=== PATIENT | female | born 1990 | race Hispanic/Latino ===

== ENCOUNTER 2020-03-10 11:16 | Inpatient (IN) | payer BC, MEDICAID ==
[~2020-03-10] VITALS: Ht 157.5 cm; Wt 101.6 kg
[~2020-03-10 11:16] MED LIST: IBUP-2070 PO
[2020-03-10 11:31] VITALS: BP 110/69
[2020-03-10 11:49] LABS: APPEARANCE,URINE Clear (CLEAR); BILIRUBIN,URINE Negative (NEGATIVE); COLOR,URINE Yellow (YELLOW); GLUCOSE, URINE (UA) Negative (NEGATIVE); KETONES,URINE Negative (NEGATIVE); LEUKOCYTE ESTERASE ,URINE Moderate (NEGATIVE); NITRATE,URINE Negative (NEGATIVE); OCCULT BLOOD,URINE Negative (NEGATIVE); PH,URINE 6.5 (5.0-8.0); PROTEIN,URINE Negative (NEGATIVE)
[2020-03-10 11:59] LABS: BACTERIA,URINE Moderate /HPF (None Seen); MUCUS,URINE Moderate LPF (None Seen); RBC,URINE None Seen /HPF (0-1)
[2020-03-10] MEDS ORDERED: AMPICILLIN 1GM+NS 50ML 50 ML IV SCH (12:15)
[2020-03-10] MEDS ORDERED: LACTATED RINGERS 500 ML 500 ML IV PRN (12:15)
[2020-03-10] MEDS ORDERED: NALOXONE HCL 0.4 MG/1 ML ML IV PRN (12:15)
[2020-03-10] MEDS ORDERED: AMPICILLIN 2GM+NS 100ML 100 ML IV SCH (12:15)
[2020-03-10] MEDS ORDERED: LACTATED RINGERS 1000ML 1,000 ML IV PRN (12:15)
[2020-03-10] MEDS ORDERED: ROPIVACAINE 0.2% 100ML VIAL 100 ML EP PRN (12:15)
[2020-03-10] MEDS ORDERED: EPHEDRINE SULFATE 50 MG/ML AMPULE IVP PRN (12:15)
[2020-03-10] MEDS ORDERED: OXYTOCIN-LR 20 UNITS/1000 ML 1,000 ML IV SCH ×2 (12:15)
[2020-03-10 12:23] LABS: HEMATOCRIT 34.7 % (36-48); MEAN CORPUSCULAR HEMOGLOBIN 25.6 pg (27.0-33.0); MEAN CORPUSCULAR HGB CONC 32.6 g/dL (32.0-36.0); MEAN CORPUSCULAR VOLUME 78.7 fL (79-99); RED BLOOD CELL COUNT(AUTO) 4.41 MIL/uL (4.00-5.50); WHITE BLOOD COUNT (AUTO) 10.5 K/uL (4.8-10.8)
[2020-03-10] MEDS: BUTORPHANOL TARTRATE 2 MG/ML IVP PRN ×2 (13:56→16:55)
[2020-03-10 14:57] LABS: AMPHET/METH SCREEN,URINE NEGATIVE (NEGATIVE); BARBITURATE SCREEN, URINE NEGATIVE (NEGATIVE); BENZODIAZEPINES SCREEN,URINE NEGATIVE (NEGATIVE); CANNABINOID SCREEN,URINE NEGATIVE (NEGATIVE); COCAINE SCREEN,URINE NEGATIVE (NEGATIVE); OPIATE SCREEN,URINE NEGATIVE (NEGATIVE); PHENCYCLIDINE SCREEN,URINE NEGATIVE (NEGATIVE)
[2020-03-10] MEDS ORDERED: LIDOCAINE HCL 1% 20 ML VIAL ONE (15:56)
[2020-03-10] MEDS ORDERED: METHYLERGONOVINE MALEATE 0.2 MG/1 ML ML ONE (15:56)
[2020-03-10] MEDS ORDERED: LANOLIN 30GM OINTMENT TP PRN (16:45)
[2020-03-10] MEDS ORDERED: MEASLES/MUMPS/RUBELLA VACCINE, LIVE 0.5 ML/VIAL SQ PRN (16:45)
[2020-03-10] MEDS ORDERED: ACETAMINOPHEN 325 MG TAB PO PRN (16:45)
[2020-03-10] MEDS ORDERED: WITCH HAZEL 1 PAD TP PRN (16:45)
[2020-03-10] MEDS ORDERED: BENZOCAINE/LANOLIN/ALOE VERA 60 ML AEROSOL TP PRN (16:45)
[2020-03-10] MEDS ORDERED: DIPH,PERTUSS(ACELL),TET VAC/PF 0.5 ML VIAL IM PRN (16:45)
[2020-03-10] MEDS: IBUPROFEN 600 MG TABLET PO PRN (17:55)
[2020-03-10 19:24] VITALS: BP 102/48
[2020-03-10 19:40] VITALS: BP 102/48
[2020-03-10] MEDS: ACETAMINOPHEN WITH CODEINE 1 TAB TAB PO PRN (19:40)
[2020-03-10] MEDS: DOCUSATE SODIUM 100 MG CAP PO SCH (21:28)
[2020-03-10] MEDS ORDERED: MV-M1COM2 PO (22:15)
[2020-03-11 00:04] VITALS: BP 110/60
[2020-03-11 03:06] VITALS: BP 110/66
[2020-03-11] MEDS: IBUPROFEN 600 MG TABLET PO PRN ×2 (06:07→13:43)
[2020-03-11 07:35] VITALS: BP 117/58
[2020-03-11] MEDS: DOCUSATE SODIUM 100 MG CAP PO SCH (08:50)
[2020-03-11 10:53] LABS: RAPID PLASMA REAGIN NONREACTIVE (NONREACTIVE)
[2020-03-11 11:40] VITALS: BP 107/60
[2020-03-11] MEDS: ACETAMINOPHEN WITH CODEINE 1 TAB TAB PO PRN (15:03)
[2020-03-11 15:05] VITALS: BP 121/57
[2020-03-12 05:11] LABS: HEPATITIS Bs ANTIGEN SCREEN P Negative (Negative)
== END 2020-03-11 19:10 | disposition home or self-care (01) | DRG 807 ==
LOC: EDH 11:16 → LDH 11:26 → OBSVTOIN 11:26 → WSH 18:36
PROVIDERS: ADMIT Obstetrics & Gynecology; ATTEND Obstetrics & Gynecology
PROC: 10E0XZZ Delivery of Products of Conception, External Approach (ICD-10-PCS; principal; 2020-03-10)
PROC: 3E0234Z Introduction of Serum, Toxoid and Vaccine into Muscle, Percutaneous Approach (ICD-10-PCS; 2020-03-10)
PROC: 3E0234Z Introduction of Serum, Toxoid and Vaccine into Muscle, Percutaneous Approach (ICD-10-PCS; 2020-03-10)
DX: O42.913 Preterm premature rupture of membranes, unspecified as to length of time between rupture and onset of labor, third trimester (principal); Z37.0 Single live birth; E66.9 Obesity, unspecified; O69.81X0 Labor and delivery complicated by cord around neck, without compression, not applicable or unspecified; Z3A.39 39 weeks gestation of pregnancy; Z23 Encounter for immunization; O99.214 Obesity complicating childbirth
CPT/HCPCS: 36415; 80305; 81001; 85027; 86592; 86701; 86850; 86900; 86901; 87088; 87340; 87390; A4351; G0378; J0290; J0595; J2210; J2590

== ENCOUNTER 2022-07-19 15:19 | Emergency (ER) | payer BC, MEDICAID ==
[~2022-07-19] VITALS: Ht 157.5 cm; Wt 97.5 kg
[~2022-07-19 15:19] MED LIST changes: +MV-M1COM2 PO
[2022-07-19] MEDS ORDERED: AMOX500C2 PO (16:15)
[2022-07-19 16:40] VITALS: BP 121/76
== END 2022-07-19 16:54 | disposition home or self-care (01) ==
LOC: EDH 15:19
DX: J02.0 Streptococcal pharyngitis (principal); Z20.822 Contact with and (suspected) exposure to COVID-19
CPT/HCPCS: 99283; 87635; 87880; 87804 ×2; C9803